=== PATIENT | female | born 1935 | race Caucasian/White ===

== ENCOUNTER 2017-04-06 18:35 | Inpatient (IN) | payer MEDICARE, OTHER, MEDICAID ==
[~2017-04-06] VITALS: Ht 170.2 cm; Wt 57.9 kg
[2017-04-06 18:30] VITALS: BP 167/96; PULSE 88; RESP 26; O2SAT 100
[~2017-04-06 18:35] MED LIST: ASPI-973 PO; ATRV10T PO; LISI40TA PO; METO50TA3 PO; RISP0.5T4 PO; WARF2TAB7 PO
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
[2017-04-06] MEDS ORDERED: DOCU-41 PO (18:53)
[2017-04-06] MEDS ORDERED: ONDA-53 PO (18:53)
[2017-04-06] MEDS ORDERED: LISI30TA5 PO (18:53)
[2017-04-06] MEDS ORDERED: OXYC-474 PO (18:53)
[2017-04-06] MEDS ORDERED: ALBU8.5H2 INHALATION (18:53)
[2017-04-06] MEDS ORDERED: LORA10CA9 PO (18:53)
[2017-04-06] MEDS ORDERED: ACET500C49 PO (18:53)
[2017-04-06] MEDS ORDERED: MAGN400O4 PO (18:53)
[2017-04-06] MEDS ORDERED: OMEP20CA11 PO (18:53)
[2017-04-06] MEDS ORDERED: MIRT15TA PO (18:53)
[2017-04-06] MEDS ORDERED: SIMV20TA4 PO (18:53)
[2017-04-06] MEDS ORDERED: OXYB5TAB10 PO (18:53)
[2017-04-06] MEDS ORDERED: BISA10SU61 RC (18:53)
[2017-04-06] MEDS ORDERED: SENN-133 PO (18:53)
[2017-04-06] MEDS ORDERED: CHOL10008 PO (18:54)
[2017-04-06 18:59] VITALS: BP 157/95; PULSE 91; RESP 32; O2SAT 100
--- NOTE | 2017-04-06 19:02 | DRSVH ---
PROCEDURE: CT BRAIN (TPA) ([id number]) INDICATIONS: Stroke TECHNIQUE: Noncontrast 4.5 mm thick angled axial sections acquired from the foramen magnum to the vertex, with c oronal reformats. COMPARISON: [facility], CT, CT BRAIN WO CON, 08/06/2015, 9:20. FINDINGS: Image quality: Excellent. CSF spaces: Basal cisterns are patent. No extra-axial fluid collections. The ventricles are symmet ashley in size and shape. Brain: No acute intracranial bleed or masses. There is extensive encephalomalacia within the bilatera l parietal lobes and right frontal lobe. There is marked ex vacuo dilatation of the posterior horns o f the bilateral lateral ventricles. The left MCA appears hyperdense on axial images. There is extensi ve volume loss throughout both hemispheres with extensive deep and periventricular white matter gomez es. Skull and face: Calvarium and visualized facial bones appear intact, without suspicious lesions. Sinuses: Visualized sinuses and mastoids are clear. IMPRESSION: 1. Questionable hyperdense left MCA which may be associated with acute arterial thrombosis. This finding was discussed with Dr. Akers at 6:59 PM on 04/06/17. 2. Extensive encephalomalacia, volume loss, and white matter changes associated with prior infarcts a nd extensive microvascular ischemic changes. This study fulfills neurological imaging criteria for inclusion or exclusion of acute stroke therapie s based on available published neurological guidelines. Dictated by: Britt Fortune M.D. on 04/06/2017 at 18:53 Approved by: Britt Fortune M.D. on 04/06/2017 at 19:00
[2017-04-06 19:10] LABS: BASOPHILS % (AUTO) 0.4 % (0-3); EOSINOPHILS % (AUTO) 1.8 % (0-5); MONOCYTES % (AUTO) 12.1 % (4-12); Mean Corpuscular Hemoglobin 30.1 pg (27.0-35.0); Mean Corpuscular Volume 92.7 fL (81-100); NEUTROPHILS % (AUTO) 49.9 % (40-74); Platelet Count 211 bil/L (150-400)
[2017-04-06 19:28] LABS: INR 1.02 ratio
[2017-04-06 19:34] VITALS: BP 158/103; PULSE 100; RESP 34; O2SAT 99
[2017-04-06 19:37] LABS: TROPONIN T < 0.010 ug/L (0.0-0.011)
--- NOTE | 2017-04-06 20:04 | ABG ---
DateTimeAnalyzed 19:56:23 -_ pH ____7.404 - pCO2 ___34.9__ -mmHg pO2 131 -mmHg HCO3- ___21.8__ -mmol/L ABE ___-2.6__ -mmol/L tHb ___12.1__ -g/dL O2Hb ___97.4__ -% COHb ____1.5__ -% MetHb ____0.4__ -% sO2 ___99.3__ -% FIO2 ___32.0__ -% Drawn By MK - Date/Time Notified____ 20:04:00 -_ Liter_Flow ____3.00_ -L/min Oxygen Device 1 __CANNULA - K+ ____3.7__ -mmol/L tO2 ___16.8__ -Vol% Chang test N/A -
--- NOTE | 2017-04-06 20:21 | DRSVH ---
PROCEDURE: X-RAY CHEST ONE VIEW, PORTABLE ([id number]) INDICATIONS: ronchi TECHNIQUE: One view of the chest was acquired. COMPARISON: [facility], CR, XR CHEST 1VW (PORTABLE), 08/06/2015, 11:03. FINDINGS: Surgical changes and devices: Surgical clips are present along the right chest wall. Lungs and pleura: No pleural effusions or pneumothorax. Lungs are clear. Mediastinum: Mediastinal contours appear normal. Heart size is enlarged, as before. Bones and chest wall: No suspicious bony lesions. There is gaseous distention of the stomach. [place] ing soft tissues appear otherwise unremarkable. IMPRESSION: No acute cardiopulmonary findings. Unchanged cardiomegaly. Gaseous distention of the stomach. Dictated by: Britt Fortune M.D. on 04/06/2017 at 20:18 Approved by: Britt Fortune M.D. on 04/06/2017 at 20:20
[2017-04-06 20:23] VITALS: BP 175/101; PULSE 102; RESP 33; O2SAT 99
[2017-04-06] MEDS ORDERED: DOCU250C2 PO (21:11)
[2017-04-06] MEDS ORDERED: MULT-666 PO (21:11)
[2017-04-06] MEDS ORDERED: LIDO700A6 TP (21:11)
[2017-04-06] MEDS ORDERED: NA P133E23 RC (21:11)
[2017-04-06] MEDS ORDERED: LATA2.5D6 BOTH_EYES (21:11)
[2017-04-06] MEDS ORDERED: LOPE-147 PO (21:11)
[2017-04-06] MEDS ORDERED: ATRV10T PO (21:11)
[2017-04-06] MEDS ORDERED: METO25TA6 PO (21:11)
[2017-04-06] MEDS ORDERED: POLY17PO6 PO (21:11)
[2017-04-06 21:16] VITALS: BP 165/115; PULSE 103; RESP 30; O2SAT 98
[2017-04-06 22:41] VITALS: PULSE 91; RESP 25; O2SAT 98
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
[2017-04-06] MEDS ORDERED: LORazepam 2 mg/mL Inj ANXIETY/AGIT IVPUSH PRN (23:45)
[2017-04-06] MEDS ORDERED: LORazepam 2 mg/mL Inj SEIZURE IVPUSH PRN (23:45)
[2017-04-06] MEDS ORDERED: Ondansetron 2 mg/mL 2 mL Inj IVPUSH PRN (23:45)
[2017-04-07] VITALS (10 sets, daily range): BP systolic 153; BP diastolic 80; PULSE 81–102; RESP 24–34; O2SAT 89–99
[2017-04-07] MEDS: Glycopyrrolate 0.2 MG/ML 1mL Inj IVPUSH PRN ×3 (00:21→22:54)
--- NOTE | 2017-04-07 01:21 | NUR ---
Admit Pt admitted to room 250-1 via stretcher at 2220. Pt is unresponsive. Pt moved with drain technician, and 2 RNs. Pt on 2L NC. Respirations 26 O2 98%.
--- NOTE | 2017-04-07 10:39 | NUR ---
Palliative Care Palliative Care received order from Dr Corbett 04/06/17 (late day) to assist with end of life care. David Ascencio (son/DPOA) [phone], Dillon Ascencio (son) [phone] Palliative Care to follow. Giovanna Escobar
--- NOTE | 2017-04-07 11:21 | NUR ---
Swallow evaluation ordered due concerns of CVA. Pt has since been placed on comfort care measures. ST will sign off at this time. Please re-order if appropriate.
--- NOTE | 2017-04-07 11:26 | NUR ---
Patient Status RR 26 upon start of shift, MS 2mg IV admin to r/o non-verbal pain or sob, no change in RR after 30 min of admin. Sons x 2 at the bedside, hoping to see what her baseline mentation will be, RN to hold MS unless patient is showing other signs of pain/discomfort to see if patient arouses. BP 153/80, RR 26, HR 100, SpO2 95% on 2L O2. Patient recently repositioned, tolerated "fair", slight rigidity in left arm, non-responsive to pain, othrew Addendum: 04/07/17 at 1133 by GISELA OSORIO RN Addendum: scant amount of urine in brief. No void since admit per LEO RN. Brief changed, kristopher care & face washed, patient dislikes oral swabs. Will not open mouth. Continuing to assess comfort of patient & family.
--- NOTE | 2017-04-07 11:29 | NUR ---
Social Work: Multidisciplinary Rounds Pt discussed in rounds. RN states pt on comfort care. MD states pt likely to pass at the hospital, but they will know more tomorrow if d/c plans should be arranged or not. MD states pt currently unresponsive. JINGLE WRITER will meet with pt's family regarding initial assessment today. KERRY Ugalde
--- NOTE | 2017-04-07 13:33 | NUR ---
Spoke with Selin from [facility] and patient comes from there and is welcome to return. Updated MICA PLATE LAYER HAND
--- NOTE | 2017-04-07 16:16 | PCM.PNMED ---
Subjective Date of Service Apr 07, 2017 Subjective Patient remains unresponsive. GCS 4. Family at bedside.2 sons confirm patient' s wishes are DNI/DNR and only comfort care when she becomes unresponsive. Exam Vital Signs Vital Sign - Last Date Time Temp Pulse Resp B/P Pulse Ox O2 Delivery O2 Flow Rate FiO2 04/07/17 11:23 89 Room Air 04/07/17 11:22 94 26 153/80 2.00 04/06/17 21:16 36.4 Exam Gen; Nonresponsive elderly female,GCS 4 CV: Irregularly Irregular with systolic murmur Resp: Mildly increased resp effort, mild rhonchi bilaterally Abd: Soft, nondistended Neuro: Unresponsive, GCS 4 Skin: Warm, dry Lab and Diagnostics Result Diagram: 04/06/17185404/06/171854 X-Rays, CTs and MRIs PROCEDURE: X-RAY CHEST ONE VIEW, PORTABLE ([id number]) IMPRESSION: No acute cardiopulmonary findings. Unchanged cardiomegaly. Gaseous distention of the stomach. PROCEDURE: CT BRAIN (TPA) ([id number]) IMPRESSION: 1. Questionable hyperdense left MCA which may be associated with acute arterial thrombosis. This finding was discussed with Dr. Akers at 6:59 PM on 04/06/17. 2. Extensive encephalomalacia, volume loss, and white matter changes associated with prior infarcts and extensive microvascular ischemic changes. This study fulfills neurological imaging criteria for inclusion or exclusion of acute stroke therapies based on available published neurological guidelines. 12-lead ECG ECG Interpretation: atrial fibrillation, rate 91 increased QTC no acute ST changes Time: 19:23 Interpreted by: ED physician Additional Diagnostics ABG DateTimeAnalyzed 19:56:23 -_ pH ____7.404 - pCO2 ___34.9__ -mmHg pO2 131 -mmHg HCO3- ___21.8__ -mmol/L ABE ___-2.6__ -mmol/L tHb ___12.1__ -g/dL O2Hb ___97.4__ -% COHb ____1.5__ -% MetHb ____0.4__ -% sO2 ___99.3__ -% FIO2 ___32.0__ -% Drawn By MK - Date/Time Notified____ 20:04:00 -_ Liter_Flow ____3.00_ -L/min Oxygen Device 1 __CANNULA - K+ ____3.7__ -mmol/L tO2 ___16.8__ -Vol% Chang test N/A - Assessment & Plan 82 yo F with history of CVA, dementia, and Atrial fibrillation who presented from nursing facility for acute right sided weakness and LOC. Found to have likely Left MCA arterial thrombosis on CT. #CVA, POA Likely Left MCA arterial thrombosis brain CT. Her son would like to honor her wishes and not intubate her. I discussed case with 2 sons at bedside,they would like her to be on comfort care only. Palliative and Food Processing Chemist consult placed. #End of Life Care, POA Comfort care order set filled out CODE STATUS: DO NOT RESUSCITATE/DO NOT INTUBATE Disposition: Anticipate patient may in hospital in the next 24-48 h. will consider hospice eval if not VTE Prophylaxis: Other (comfort care) Resuscitation Status: DNR/DNI:Do Not Resuscitate/Intubate Chris Clark MD Apr 07, 2017 16:15
--- NOTE | 2017-04-07 16:22 | NUR ---
Social Work: Initial Assessment Data: Pt is an 82 y/o female admitted for CVA, comfort care. Pt's PCP is Dr Danielle, pt's insurance is Medicare with [facility] [place]. EMR reviewed, readmit score not listed. PRECIPITATE WASHER met with pt and son at bedside. Pt is on comfort care and likely to pass in 24 hours per MD. Pt's son states that pt uses a walker at baseline and that they expect pt to pass soon, per MD. PRECIPITATE WASHER explained that if she does not pass within 24 hours that PRECIPITATE WASHER would be back to talk about d/c options, likely with hospice. Pt's son states understanding. The rest of assessment not appropriate at this time. Assessment: Pt from SNF. Plan: Pt will likely pass here verses back to SNF with hospice. PRECIPITATE WASHER will continue to follow. KERRY Ugalde
[2017-04-07] MEDS: Atropine 1% 5 mL Ophthalmic Solution PO PRN (19:39)
[2017-04-07] MEDS ORDERED: Morphine 20 mg/mL Oral Syringe SL/PO SCH (22:00)
[2017-04-07] MEDS: Morphine 20 mg/mL Oral Syringe SL/PO PRN (22:16)
[2017-04-08] VITALS (7 sets, daily range): PULSE 97–115; RESP 23–35
[2017-04-08] MEDS: Morphine 20 mg/mL Oral Syringe SL/PO PRN ×4 (03:30→09:54)
[2017-04-08] MEDS: Glycopyrrolate 0.2 MG/ML 1mL Inj IVPUSH PRN (04:52)
--- NOTE | 2017-04-08 06:15 | NUR ---
Shift Note Assumed pt care at 1900, pt on comfort care noted tachypneic 30's at start of shift, pt had 3 consecutive doses of PRN IV Morphine, no relief from tachypnea RR 30-36, at [address] Baeza inquired for Morphine drip, order for Roxanol given r/t possibility of pt going back to [facility] facility in am, given PRN Roxanol tonight with notable relief, oral and kristopher care done, pt able to void x2, wears adult briefs, has 02 for comfort, q1 checks done throughout night.
[2017-04-08] MEDS: Atropine 1% 5 mL Ophthalmic Solution PO PRN ×3 (07:41→11:04)
[2017-04-08] MEDS ORDERED: Morphine Inj 1,000 MG in 0.9% Sodium Chloride 30 ML IV PRN (09:40)
[2017-04-08] MEDS ORDERED: Morphine 100 mg/100 mL NS 100 MG in IV Premix 1 EACH IV SCH (10:05)
--- NOTE | 2017-04-08 14:00 | NUR ---
Respirations Patient tachypneic with respirations 35 at 0730, PO/SL Roxanol 10mg given. Respirations 32 at 0945, Roxanol given again. Hospitalist ordered IV Morphine drip, started at 1050. Respirations dropped to 22-24. Patient appears comfortable, turned for comfort. Atropine drops given for secretions, and oral care given. Family at bedside.
--- NOTE | 2017-04-08 14:56 | PCM.PNMED ---
Subjective Date of Service Apr 08, 2017 Subjective Patient tachypneic but otherwise looks comfortable. Family members at bedside. Remains unresponsive Exam Vital Signs Vital Sign - Last Date Time Temp Pulse Resp B/P Pulse Ox O2 Delivery O2 Flow Rate FiO2 04/08/17 12:00 108 24 04/08/17 10:15 Nasal Cannula 04/08/17 07:30 2.00 04/07/17 11:23 89 04/07/17 11:22 153/80 04/06/17 21:16 36.4 Exam Gen; Nonresponsive elderly female,GCS 3 CV: Irregularly Irregular with systolic murmur Resp: Mildly increased resp effort, mild rhonchi bilaterally Abd: Soft, nondistended Neuro: Unresponsive, GCS 3 Skin: Warm, dry IVs and Medications Medications Reviewed: Medications were reviewed in detail Lab and Diagnostics Result Diagram: 04/06/17185404/06/171854 X-Rays, CTs and MRIs PROCEDURE: X-RAY CHEST ONE VIEW, PORTABLE ([id number]) IMPRESSION: No acute cardiopulmonary findings. Unchanged cardiomegaly. Gaseous distention of the stomach. PROCEDURE: CT BRAIN (TPA) ([id number]) IMPRESSION: 1. Questionable hyperdense left MCA which may be associated with acute arterial thrombosis. This finding was discussed with Dr. Akers at 6:59 PM on 04/06/17. 2. Extensive encephalomalacia, volume loss, and white matter changes associated with prior infarcts and extensive microvascular ischemic changes. This study fulfills neurological imaging criteria for inclusion or exclusion of acute stroke therapies based on available published neurological guidelines. 12-lead ECG ECG Interpretation: atrial fibrillation, rate 91 increased QTC no acute ST changes Time: 19:23 Interpreted by: ED physician Additional Diagnostics ABG DateTimeAnalyzed 19:56:23 -_ pH ____7.404 - pCO2 ___34.9__ -mmHg pO2 131 -mmHg HCO3- ___21.8__ -mmol/L ABE ___-2.6__ -mmol/L tHb ___12.1__ -g/dL O2Hb ___97.4__ -% COHb ____1.5__ -% MetHb ____0.4__ -% sO2 ___99.3__ -% FIO2 ___32.0__ -% Drawn By MK - Date/Time Notified____ 20:04:00 -_ Liter_Flow ____3.00_ -L/min Oxygen Device 1 __CANNULA - K+ ____3.7__ -mmol/L tO2 ___16.8__ -Vol% Chang test N/A - Assessment & Plan 82 yo F with history of CVA, dementia, and Atrial fibrillation who presented from nursing facility for acute right sided weakness and LOC. Found to have likely Left MCA arterial thrombosis on CT. #CVA, POA Likely Left MCA arterial thrombosis brain CT. Her son would like to honor her wishes and not intubate her. I discussed case with 2 sons at bedside,they would like her to be on comfort care only. Palliative and Acupressurist consult placed. Morphine drip started #Acute hypoxic respiratory failure due to above #unresponsiveness with GCS 3 due to CVA #History of atrial fibrillation #End of Life Care, POA Comfort care order set filled out CODE STATUS: DO NOT RESUSCITATE/DO NOT INTUBATE Disposition: Anticipate patient may in hospital in the next 24-48 h. will consider hospice eval if not VTE Prophylaxis: Other (comfort care) Resuscitation Status: DNR/DNI:Do Not Resuscitate/Intubate Chris Clark MD Apr 08, 2017 14:56
--- NOTE | 2017-04-08 15:58 | NUR ---
Social Work: Multidisciplinary Rounds Pt discussed in am rounds. Pt anticipated to at [facility] within the next 24 hours. Pt's family has questions about whether to release pt's bed at [facility]. HOUSEKEEPING ATTENDANT spoke with the pt's son, Kyle via telephone. He states that he no longer requires this information as the pt has just passed. He declined any needs and states that they have already selected a home. KERRY Hahn
--- NOTE | 2017-04-08 16:16 | PCM.DC.MEX ---
Discharge Summary Date of Service Apr 08, 2017 Dates of Hospitalization Date of Hospital Admission Apr 06, 2017 at 21:42 Date of Expiration: Apr 08, 2017 Time of Expiration: 15:25 Providers: Admitting Physician: Jin Mills MD Primary Care Physician: Levi Danielle MD Attending Physician: Chris Clark MD Diagnosis at Time of # acute CVA, POA Left MCA arterial thrombosis on brain CT. #Acute hypoxic respiratory failure due to above #unresponsiveness with GCS 3 due to CVA #History of atrial fibrillation Procedures XRay, CTs & MRIs PROCEDURE: X-RAY CHEST ONE VIEW, PORTABLE ([id number]) IMPRESSION: No acute cardiopulmonary findings. Unchanged cardiomegaly. Gaseous distention of the stomach. PROCEDURE: CT BRAIN (TPA) ([id number]) IMPRESSION: 1. Questionable hyperdense left MCA which may be associated with acute arterial thrombosis. This finding was discussed with Dr. Akers at 6:59 PM on 04/06/17. 2. Extensive encephalomalacia, volume loss, and white matter changes associated with prior infarcts and extensive microvascular ischemic changes. This study fulfills neurological imaging criteria for inclusion or exclusion of acute stroke therapies based on available published neurological guidelines. ECG 12 Lead ECG Interpretation: atrial fibrillation, rate 91 increased QTC no acute ST changes Time: 19:23 Interpreted by: ED physician Other Diagnostics ABG DateTimeAnalyzed 19:56:23 -_ pH ____7.404 - pCO2 ___34.9__ -mmHg pO2 131 -mmHg HCO3- ___21.8__ -mmol/L ABE ___-2.6__ -mmol/L tHb ___12.1__ -g/dL O2Hb ___97.4__ -% COHb ____1.5__ -% MetHb ____0.4__ -% sO2 ___99.3__ -% FIO2 ___32.0__ -% Drawn By MK - Date/Time Notified____ 20:04:00 -_ Liter_Flow ____3.00_ -L/min Oxygen Device 1 __CANNULA - K+ ____3.7__ -mmol/L tO2 ___16.8__ -Vol% Chang test N/A - Brief History per HPI 82 yo F with history of CVA, dementia, and Atrial fibrillation who presented from nursing facility for acute right sided weakness and LOC. Per report, patient was noted to develop right sided weakness at the nursing facility, then became unresponsive. It was noted that patient was in Atrial fib and had unequal pupils en route to the ED. In the ED, patient continued to be unresponsive and had a GCS of 4. Brain CT showed a hyperdense region in the left MCA which likely represents an arterial thrombosis. tPA was not administered due to history of intracranial bleeding. ED physician discussed treatment options with patient's son, and the decision was not to intubate and to admit patient for comfort care. Hospital Course 82 yo F with history of CVA, dementia, and Atrial fibrillation who presented from nursing facility for acute right sided weakness and LOC. Found to have likely Left MCA arterial thrombosis on CT. #CVA, POA Likely Left MCA arterial thrombosis brain CT. Her sons wanted honor her wishes and not intubate her. I discussed case with 2 sons at bedside,they wanted her to be on comfort care only per her wishes. Morphine drip started.patient eventually at 1525 pm on .pronounced by me Chris Clark MD #Acute hypoxic respiratory failure due to above #unresponsiveness with GCS 3 due to CVA #History of atrial fibrillation Exam Test 04/06/17 18:55 White Blood Count 8.4th/mm3 (3.8-10.1) Red Blood Count 3.82mil/mm3 (3.90-5.20) Hemoglobin 11.5g/dL (12.0-15.6) Hematocrit 35.4% (35.0-46.0) Mean Corpuscular Volume 92.7fL (81-100) Mean Corpuscular Hemoglobin 30.1pg (27.0-35.0) Mean Corpuscular Hemoglobin Concent 32.5% (32.0-37.0) Red Cell Distribution Width 14.0% (12.3-15.4) Platelet Count 211bil/L (150-400) Neutrophils (%) (Auto) 49.9% (40-74) Lymphocytes (%) (Auto) 35.6% (14-46) Monocytes (%) (Auto) 12.1% (4-12) Eosinophils (%) (Auto) 1.8% (0-5) Basophils (%) (Auto) 0.4% (0-3) Prothrombin Time 10.9sec (8.1-12.5) Prothromb Time International Ratio 1.02ratio Activated Partial Thromboplast Time 24.0sec (22.8-33.0) Sodium Level 141mEq/L (134-144) Potassium Level 4.0mEq/L (3.5-5.2) Chloride Level 105mEq/L (97-108) Carbon Dioxide Level 19mmol/L (18-29) Blood Urea Nitrogen 22mg/dL (8-27) Creatinine 0.77mg/dL (0.57-1.00) Estimat Glomerular Filtration Rate 103mL/min (>59) Glucose Level 122mg/dL (60-99) Calcium Level 8.8mg/dL (8.5-10.1) Total Bilirubin 0.5mg/dL (0.0-1.2) Aspartate Amino Transf (AST/SGOT) 13U/L (0-50) Alanine Aminotransferase (ALT/SGPT) 10U/L (0-32) Alkaline Phosphatase 81U/L (25-165) Troponin T < 0.010ug/L (0.0-0.011) Total Protein 7.1g/dL (6.4-8.4) Albumin 3.5g/dL (3.4-5.0) Hold Mckeon Top Tube Received (Received) Time spent 35 minutes copies to: Levi Danielle MD, Melaku MD Apr 08, 2017 16:16
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
--- NOTE | 2017-04-08 17:28 | NUR ---
Patient at 1525. Rocky Brito at bedside. Authorization for release of body form completed.
--- NOTE | 2017-04-08 17:49 | NUR ---
spiritual care: staff emotional support, prayer with family. handprint. add'l care at time of as son said goodbye and left.
== END 2017-04-08 15:25 | disposition expired | DRG 64 ==
LOC: SED 18:35 → MOC 21:42
PROVIDERS: ADMIT Internal Medicine; ATTEND Internal Medicine
PROC: 4A033R1 Measurement of Arterial Saturation, Peripheral, Percutaneous Approach (ICD-10-PCS; principal; 2017-04-06)
DX: I63.9 Cerebral infarction, unspecified (principal); J96.01 Acute respiratory failure with hypoxia; I69.354 Hemiplegia and hemiparesis following cerebral infarction affecting left non-dominant side; G81.91 Hemiplegia, unspecified affecting right dominant side; I48.91 Unspecified atrial fibrillation; R40.2432 Glasgow coma scale score 3-8, at arrival to emergency department; Z66 Do not resuscitate; Z51.5 Encounter for palliative care; F03.90 Unspecified dementia, unspecified severity, without behavioral disturbance, psychotic disturbance, mood disturbance, and anxiety; Z79.01 Long term (current) use of anticoagulants; Z79.82 Long term (current) use of aspirin